=== PATIENT | male | born 2000 | race Caucasian/White ===

== ENCOUNTER 2021-10-27 18:51 | Emergency (ER) | payer OTHER ==
[~2021-10-27] VITALS: Ht 185.4 cm; Wt 68.0 kg
[2021-10-27 18:59] VITALS: BP 153/101
--- NOTE | 2021-10-27 19:25 | NUR ---
21 yo m bib self with c/c of 2/10 pressure-like chest pain rad to left arm x5pm. pt states he went to urgent care and was referred here d/t hx of SVT. pt states chest pain began during rest and was intially 8/10 pain, has now subsided. pt denies sob. no diaphoresis. pt placed in gown and on radiographer cardiac catheterization. warm blanket provided. all needs met at this. vss. pt is in stable condition. hx: svt rx:denies nka
[2021-10-27 19:55] VITALS: BP 143/80
--- NOTE | 2021-10-27 19:55 | NUR ---
Patient discharged with v/s stable. Written and verbal after care instructions given and explained. Patient verbalized understanding. Ambulatory with steady gait. All questions addressed prior to discharge. Advised to follow up with PMD.
== END 2021-10-27 19:55 | disposition home or self-care (01) ==
LOC: MED 18:51
DX: R07.89 Other chest pain (principal); I47.1 Supraventricular tachycardia; Z88.0 Allergy status to penicillin
CPT/HCPCS: 71045; 93005; 99283; Q0092

== ENCOUNTER 2022-02-01 22:51 | Emergency (ER) | payer OTHER ==
[~2022-02-01] VITALS: Ht 185.4 cm; Wt 68.0 kg
[2022-02-01 23:15] VITALS: BP 125/86
--- NOTE | 2022-02-02 00:23 | NUR ---
Dr. Ritter examining patient.
--- NOTE | 2022-02-02 00:25 | NUR ---
Patient ambulated to bed 11.
--- NOTE | 2022-02-02 00:29 | NUR ---
21 yo m bib self with c/c of heart palpitations x7pm. pt state it got better over an hour but just wanted to make sure evrything is ok. pt denies drug use. reports he drank [employer] coffee around 1pm and had a beer 7hrs ago. denies taking medication prior to coming in. pt placed in gown and is on [employer]. pt reports history of svt for years. hx:svt allergy:pcn
--- NOTE | 2022-02-02 01:28 | NUR ---
rad at bedside.
[2022-02-02 01:40] LABS: BASOPHILS % (AUTO) 0.8 % (0.0-2.0); EOSINOPHILS # (AUTO) 0.1 K/uL (0-0.4); HEMOGLOBIN 15.3 g/dL (12.0-18.0); LYMPHOCYTES # (AUTO) 2.3 K/uL (2.0-11.5); LYMPHOCYTES % (AUTO) 43.1 % (20.5-51.1); MEAN CORPUSCULAR HEMOGLOBIN 30 pg (27-31); MEAN CORPUSCULAR HGB CONC 34 g/dL (33-37); MEAN CORPUSCULAR VOLUME 88.7 fL (80-94); MONOCYTES # (AUTO) 0.5 K/uL (0.8-1.0); MONOCYTES % (AUTO) 10.1 % (1.7-9.3); NEUTROPHILS # (AUTO) 2.4 K/uL (1.8-7.7); PLATELET COUNT (AUTO) 277 K/uL (140-450); RED BLOOD CELL COUNT(AUTO) 5.07 MIL/uL (4.20-6.10); RED CELL DISTRIBUTION WIDTH 12.6 % (11.6-13.7); WHITE BLOOD COUNT (AUTO) 5.3 K/uL (4.5-11.0)
[2022-02-02 02:11] LABS: CARBON DIOXIDE 32.2 mmol/L (21-32); CHLORIDE 102 mmol/L (98-107); GFR ARICAN-AMERICAN 123 mL/min (>90); GLUCOSE 99 mg/dL (74-106); POTASSIUM 4.2 mmol/L (3.5-5.1); SODIUM SERUM 140 mmol/L (136-145); THYROID STIMULATING HORMONE 2.39 uIU/mL (0.34-3.74); TOTAL BILIRUBIN 0.5 mg/dL (0.0-1.0); UREA NITROGEN, BLOOD 14 mg/dL (7-18)
[2022-02-02 02:35] LABS: ALBUMIN 4.3 g/dL (3.4-5.0); ASPARTATE AMINOTRANSFERASE 15 U/L (15-37)
[2022-02-02 03:00] VITALS: BP 125/62
== END 2022-02-02 03:00 | disposition home or self-care (01) ==
LOC: MED 22:51
DX: R00.2 Palpitations (principal); Z88.0 Allergy status to penicillin
CPT/HCPCS: 36415; 71045; 80053; 84443; 84484; 85025; 93005; 99285; Q0092